=== PATIENT | male | born 1990 | race American Indian/Alaskan Native ===

== ENCOUNTER 2018-11-07 09:55 | Emergency (ER) | payer OTHER ==
[2018-11-07 10:17] VITALS: BP 135/87
--- NOTE | 2018-11-07 10:35 | Emergency Department Report ---
ED Back Pain/Injury HPI - General Chief Complaint: Back Pain/Injury Stated Complaint: BACK PAIN Time Seen by Provider: 11/07/18 10:24 Source: patient Limitations: No Limitations - History of Present Illness Initial Comments: This is a 28-year-old male who presents complaining of lower back sustained while he was at work on 10/29/2018. Patient stated that he was heavy box and t wisted the wrong way consistent cause a lower back pain since the incident. Patient states he was seen [facility] ER 3 days ago and was x-rayed to go home on 600 milligrams of ibuprofen and tramadol 50 mg. Patient states he still experiencing pain and does not have a follow-up appointment with the orthopedic doctor onto November 17. Patient states the pain is worsened by certain movements or sitting positions. He denies difficulty walking or bending or loss of sensation or loss of bowel function MD Complaint: back injury - Related Data Previous Rx's Medication Instructions Recorded Last Taken Type Cyclobenzaprine [Flexeril] 10 mg PO QHS PRN #15 tablet 11/07/18 Unknown Rx Allergies Allergy/AdvReac Type Severity Reaction Status Date / Time No Known Allergies Allergy Unverified 11/07/18 10:17 ED Review of Systems ROS: Stated complaint: BACK PAIN Other details as noted in HPI Comment: All other systems reviewed and negative ED Past Medical Hx - Past Medical History Previous Medical History?: No - Surgical History Past Surgical History?: No - Social History Smoking Status: Never Smoker Substance Use Type: None - Medications Home Medications: Home Medications Medication Instructions Recorded Confirmed Last Taken Type Cyclobenzaprine [Flexeril] 10 mg PO QHS PRN #15 tablet 11/07/18 Unknown Rx ED Physical Exam - General Limitations: No Limitations General appearance: alert, in no apparent distress - Head Head exam: Present: atraumatic, normocephalic - Eye Eye exam: Present: normal appearance - ENT ENT exam: Present: mucous membranes moist - Neck Neck exam: Present: normal inspection - Respiratory Respiratory exam: Present: normal lung sounds bilaterally. Absent: respiratory distress - Cardiovascular Cardiovascular Exam: Present: regular rate, normal rhythm. Absent: systolic murmur, diastolic murmur, rubs, gallop - GI/Abdominal GI/Abdominal exam: Present: soft, normal bowel sounds - Rectal Rectal exam: Present: deferred - Extremities Exam Extremities exam: Present: normal inspection - Back Exam Back exam: Present: normal inspection, full ROM, tenderness (to palpation of the lumbar spine and the latissimus dorsi muscles). Absent: CVA tenderness (R), CVA tenderness (L) - Neurological Exam Neurological exam: Present: alert, oriented X3 - Psychiatric Psychiatric exam: Present: normal affect, normal mood - Skin Skin exam: Present: warm, dry, intact, normal color. Absent: rash ED Course Vital Signs 11/07/18 10:16 Temperature 99 F Pulse Rate 103 H Respiratory 16 Rate Blood Pressure 135/87 O2 Sat by Pulse 99 Oximetry ED Medical Decision Making - Radiology Data Radiology results: report reviewed, image reviewed FINDINGS: CT images of the lumbar spine were obtained. Images are evaluated in the axial, coronal, and sagittal plane. There is no evidence of acute abnormality. Vertebral body height and alignment is normal throughout the lumbar spine. There is a slight wedge shape configuration to the T12 vertebral body and sagittal plane. Do not see any evidence to suggest acute abnormality at this level. Disc profiles are well-preserved at all levels. IMPRESSION: No evidence of acute abnormality. All CT scans at this location are performed using dose reduction to ALARA by means of automated exposure control. Signer Name: Scott Cast MD Signed: 11/07/2018 12:14 PM Workstation Name: [id number] Transcribed By: MIRIAN Dictated By: Scott Cast MD Electronically Authenticated By: Scott Cast MD Signed Date/Time: 11/07/18 1214 - Medical Decision Making 28-year-old male presents to ED with lower back myalgia ED course: Patient received CT scan of the lumbar spine Vital signs are normal patient is in no acute distress Discussed with patient follow-up with primary care physician. Discussed the patient and take medications as prescribed. Patient has no neurological deficit. Patient is alert and oriented 3 and understands all instructions given. Discussed drowsiness effect of Flexeril makes her drowsy and not to operate machinery while taking flexeril Critical care attestation.: If time is entered above; I have spent that time in minutes in the direct care of this critically ill patient, excluding procedure time. ED Disposition Clinical Impression: Low back pain, Lumbar strain Disposition: DC- TO HOME OR SELFCARE Is pt being admited?: No Does the pt Need Aspirin: No Condition: Stable Instructions: Lumbar Radiculopathy (ED), Arthralgia (ED) Additional Instructions: Make sure to follow up with the primary care physician as discussed. Keep your appointment with the orthopedic doctor has you have a scheduled Take all your medications as you've been prescribed. If you have any worsening symptoms or develop new symptoms please return to ED immediately. Prescriptions: Cyclobenzaprine [Flexeril] 10 mg PO QHS PRN #15 tablet PRN Reason: Muscle Spasm Referrals: GEE ESCOBAR MD [Staff Physician] - 3-5 Days Forms: Work/School Release Form(ED) Time of Disposition: 12:30
--- NOTE | 2018-11-07 12:18 | Cat Scan Report ---
CT LUMBAR SPINE: 11/07/2018 INDICATION / CLINICAL INFORMATION: MAIN: lower back pain/injury. COMPARISON: None available. FINDINGS: CT images of the lumbar spine were obtained. Images are evaluated in the axial, coronal, and sagitta l plane. There is no evidence of acute abnormality. Vertebral body height and alignment is normal throughout the lumbar spine. There is a slight wedge shape configuration to the T12 vertebral body and sagittal plane. Do not see any evidence to suggest acute abnormality at this level. Disc profiles are well-preserved at all levels. IMPRESSION: No evidence of acute abnormality. All CT scans at this location are performed using dose reduction to ALARA by means of automated expos ure control. Signer Name: Scott Cast MD Signed: 11/07/2018 12:14 PM Workstation Name: [id number]
== END 2018-11-07 12:41 | disposition home or self-care (01) ==
LOC: ED 09:55
DX: S39.012A Strain of muscle, fascia and tendon of lower back, initial encounter (principal); Z79.899 Other long term (current) drug therapy; X50.0XXA Overexertion from strenuous movement or load, initial encounter; Y93.89 Activity, other specified; Y92.89 Other specified places as the place of occurrence of the external cause; Y99.8 Other external cause status
CPT/HCPCS: 72131

== ENCOUNTER 2020-02-10 08:14 | Emergency (ER) | payer SELFPAY ==
[2020-02-10 08:34] VITALS: BP 148/89
[2020-02-10 09:02] LABS: Bilirubin,Urine NEG (Negative); Blood,Urine NEG (Negative); Color,Urine Yellow (Yellow); Mucus,Urine FEW /HPF; Protein,Urine <15 mg/dL mg/dL (Negative); Urobilinogen,Urine < 2.0 mg/dL (<2.0); WBC,Urine < 1.0 /HPF (0.0-6.0)
--- NOTE | 2020-02-10 10:30 | Emergency Department Report ---
ED Male HPI - General Chief complaint: Urogenital-Male Stated complaint: UTI Time Seen by Provider: 02/10/20 10:18 Source: patient Mode of arrival: Ambulatory Limitations: No Limitations - History of Present Illness Initial comments: The patient was evaluated in the emergency department for symptoms described in the history of present illness. He/she was evaluated in the context of the global COVID-19 pandemic, which necessitated consideration that the patient might be at risk for infection with the virus that causes COVID-19. Institutional protocols and algorithms that pertain to the evaluation of patients at risk for COVID-19 are in a state of rapid change based on information released by regulatory bodies including the CDC and federal and state organizations. These policies and algorithms were followed during the patient's care in the emergency department. Please note that these policies, procedures and recommendations changed on a rapid basis. 29-year-old -[place] male presents to the emergency room stating that he had mucus coming from his penis with urine. Patient denies any dysuria , penile discharge no lesions on his penis. Reports he had a STD check this week and gonorrhea and Chlamydia were both negative. Patient states that the concern is about a 2 out of 10. He denies any pain at this time. No nausea no vomiting. No bifurcation of stream of urine. No testicular pain or swelling no groin pain. Severity scale (0 -10): 2 Improves with: none Worsens with: none denies: discharge, swelling, mass - Related Data Previous Rx's Medication Instructions Recorded Last Taken Type Cyclobenzaprine [Flexeril] 10 mg PO QHS PRN #15 tablet 11/07/18 Unknown Rx Allergies Allergy/AdvReac Type Severity Reaction Status Date / Time No Known Allergies Allergy Unverified 11/07/18 10:17 ED Review of Systems ROS: Stated complaint: UTI Other details as noted in HPI Comment: All other systems reviewed and negative ED Past Medical Hx - Past Medical History Previous Medical History?: No - Surgical History Past Surgical History?: No - Social History Smoking Status: Never Smoker Substance Use Type: None - Medications Home Medications: Home Medications Medication Instructions Recorded Confirmed Last Taken Type Cyclobenzaprine [Flexeril] 10 mg PO QHS PRN #15 tablet 11/07/18 Unknown Rx ED Physical Exam - General Limitations: No Limitations General appearance: alert, in no apparent distress - Head Head exam: Present: atraumatic, normocephalic - Eye Eye exam: Present: normal appearance, PERRL, EOMI - ENT ENT exam: Present: mucous membranes moist - Respiratory Respiratory exam: Absent: accessory muscle use - Cardiovascular Cardiovascular Exam: Present: regular rate, normal rhythm. Absent: systolic murmur, diastolic murmur, rubs, gallop - Neurological Exam Neurological exam: Present: alert, oriented X3, normal gait - Psychiatric Psychiatric exam: Present: normal affect, normal mood - Skin Skin exam: Present: warm, dry, intact, normal color. Absent: rash ED Course Vital Signs 02/10/20 08:31 Temperature 99.1 F Pulse Rate 98 H Respiratory 20 Rate Blood Pressure 148/89 O2 Sat by Pulse 98 Oximetry ED Medical Decision Making - Medical Decision Making 29-year-old -[place] male presents to the emergency room stating that he had mucus coming from his penis with urine. Patient denies any dysuria , penile discharge no lesions on his penis. Reports he had a STD check this week and gonorrhea and Chlamydia were both negative. Patient states that the concern is about a 2 out of 10. He denies any pain at this time. No nausea no vomiting. No bifurcation of stream of urine. No testicular pain or swelling no groin pain. Urinalysis is negative for any abnormalities. I discussed the patient needs to increase his water intake avoid sugary drinks. Follow-up with a urologist or primary care provider for any further concerns. Critical care attestation.: If time is entered above; I have spent that time in minutes in the direct care of this critically ill patient, excluding procedure time. ED Disposition Clinical Impression: Dysuria Disposition: DC-01 TO HOME OR SELFCARE Is pt being admited?: No Does the pt Need Aspirin: No Condition: Stable Instructions: Dysuria Additional Instructions: Urinalysis is negative for any infection. Increase your water intake avoid sugary drinks avoid sodas and juices. Follow-up with a urologist. Referrals: PRIMARY CAREMD [Primary Care Provider] - 3-5 Days FUNMILAYO MELENDREZ MD [Staff Physician] - 3-5 Days
== END 2020-02-10 10:46 | disposition home or self-care (01) ==
LOC: ED 08:14
DX: R30.0 Dysuria (principal)
CPT/HCPCS: 81001; 99283

== ENCOUNTER 2020-04-01 01:33 | Emergency (ER) | payer SELFPAY ==
[2020-04-01 01:55] VITALS: BP 149/93
[2020-04-01 02:17] LABS: Bilirubin,Urine NEG (Negative); Blood,Urine NEG (Negative); Color,Urine Yellow (Yellow); Mucus,Urine FEW /HPF; Protein,Urine <15 mg/dL mg/dL (Negative); Urobilinogen,Urine < 2.0 mg/dL (<2.0)
[2020-04-01] MEDS ORDERED: ONDANSETRON 4 MG/2 ML INJ IV ONE (02:48)
[2020-04-01] MEDS ORDERED: FAMOTIDINE 20 MG/2 ML INJ IV ONE (02:48)
[2020-04-01] MEDS ORDERED: KETOROLAC 30 MG/1 ML INJ IV ONE (02:48)
[2020-04-01 03:02] LABS: Basophils % (Auto) 0.7 % (0.0-1.8); Eosinophils # (Auto) 0.1 K/mm3 (0.0-0.4); Eosinophils % (Auto) 0.9 % (0.0-4.3); Lymphocytes # (Auto) 3.1 K/mm3 (1.2-5.4); Lymphocytes % (Auto) 43.6 % (13.4-35.0); Mean Corpuscular HGB Conc 37 % (32-34); Mean Corpuscular Volume 88 fl (84-94); Monocytes # (Auto) 0.7 K/mm3 (0.0-0.8); Platelet Count 368 K/mm3 (140-440); Red Blood Count 4.78 M/mm3 (3.65-5.03); Red Cell Distribution Width 12.7 % (13.2-15.2)
[2020-04-01 03:04] LABS: Hematocrit 41.8 % (35.5-45.6); Hemoglobin 15.4 gm/dl (11.8-15.2)
[2020-04-01 03:07] LABS: Calcium 8.6 mg/dL (8.4-10.2); Hemolysis Index 5
--- NOTE | 2020-04-01 03:16 | Cat Scan Report ---
CT abdomen pelvis wo con INDICATION: left flank pain. COMPARISON: None TECHNIQUE: Abdominal and pelvic CT exam performed. All CT scans at this location are performed using CT dose reduction for ALARA by means of automated exposure control. FINDINGS: CT ABDOMEN and PELVIS: Lung Bases: Scattered pneumatoceles are seen within the visualized lungs. Liver: No significant abnormality. Biliary: No significant abnormality. Spleen: No significant abnormality. Pancreas: No significant abnormality. Adrenals: No significant abnormality. Kidneys: No significant abnormality. Lymphatics: No lymphadenopathy. Vasculature: No significant abnormality. Bowel: No significant abnormality. Normal appendix. Pelvis: No significant abnormality. Osseous Structures: No aggressive osseous lesion. Additional Findings: Tiny superior ventral and umbilical fat-containing abdominal wall hernias withou t complicating features IMPRESSION: 1. No significant abnormality of the abdomen or pelvis. Signer Name: Theo Braun MD Signed: 04/01/2020 3:11 AM Workstation Name: [id number]
[2020-04-01 03:33] LABS: BUN/Creatinine Ratio 1; Blood Urea Nitrogen 1 mg/dL (9-20)
--- NOTE | 2020-04-01 03:58 | Emergency Department Report ---
ED Abdominal Pain HPI - General Chief Complaint: Abdominal Pain Stated Complaint: LEFT FLANK PAIN Source: patient Mode of arrival: Ambulatory Limitations: No Limitations - History of Present Illness Initial Comments: Patient is a 29-year-old -[place] male with a history of morbid obesity and asthma who presents to the ED with complaint of persistent left flank pain intermittently for the last 6 months, worse in the last 1 week. Patient states that he was initially evaluated by an urgent care clinic and was advised to come to the ED immediately for evaluation to rule out AAA. Patient however denies dizziness, syncope, nausea, vomiting, hematuria, hematochezia, dysuria, urinary frequency and urgency, chest pain or shortness of breath, headache, traumatic injury or heavy lifting, fever and chills or cough and testicular pain. MD Complaint: abdominal pain, flank pain (left flank pain) -: Gradual, month(s) (6) Location: L flank Radiation: none Migration to: no migration Severity: moderate Severity scale (0 -10): 4 Quality: aching, sharp Consistency: intermittent Improves With: nothing Worsens With: movement Associated Symptoms: denies other symptoms, anorexia. denies: nausea, vomiting, diarrhea, fever, chills, constipation, dysuria, hematemesis, hematochezia, melena - Related Data Previous Rx's Medication Instructions Recorded Last Taken Type Cyclobenzaprine [Flexeril] 10 mg PO QHS PRN #15 tablet 11/07/18 Unknown Rx Cyclobenzaprine [Flexeril] 10 mg PO TID PRN #15 tablet 04/01/20 Unknown Rx Naproxen 500 mg PO Q12H PRN #30 tablet 04/01/20 Unknown Rx Allergies Allergy/AdvReac Type Severity Reaction Status Date / Time No Known Allergies Allergy Unverified 11/07/18 10:17 ED Review of Systems ROS: Stated complaint: LEFT FLANK PAIN Other details as noted in HPI Constitutional: denies: chills, fever Eyes: denies: eye pain, eye discharge, vision change ENT: denies: ear pain, throat pain Respiratory: denies: cough, shortness of breath, wheezing Cardiovascular: denies: chest pain, palpitations Endocrine: no symptoms reported Gastrointestinal: abdominal pain (left flank pain). denies: nausea, vomiting, diarrhea Genitourinary: denies: urgency, dysuria Musculoskeletal: denies: back pain, joint swelling, arthralgia Skin: denies: rash, lesions Neurological: denies: headache, weakness, paresthesias Psychiatric: denies: anxiety, depression Hematological/Lymphatic: denies: easy bleeding, easy bruising ED Past Medical Hx - Past Medical History Previous Medical History?: Yes Hx Asthma: Yes - Surgical History Past Surgical History?: No - Social History Smoking Status: Never Smoker Substance Use Type: Alcohol - Medications Home Medications: Home Medications Medication Instructions Recorded Confirmed Last Taken Type Cyclobenzaprine [Flexeril] 10 mg PO QHS PRN #15 tablet 11/07/18 Unknown Rx Cyclobenzaprine [Flexeril] 10 mg PO TID PRN #15 tablet 04/01/20 Unknown Rx Naproxen 500 mg PO Q12H PRN #30 tablet 04/01/20 Unknown Rx ED Physical Exam - General Limitations: No Limitations General appearance: alert, in no apparent distress - Head Head exam: Present: atraumatic, normocephalic, normal inspection - Eye Eye exam: Present: normal appearance, PERRL, EOMI Pupils: Present: normal accommodation - ENT ENT exam: Present: normal exam, normal orophraynx, mucous membranes moist, TM's normal bilaterally, normal external ear exam - Neck Neck exam: Present: normal inspection, full ROM - Respiratory Respiratory exam: Present: normal lung sounds bilaterally. Absent: respiratory distress, wheezes, rales, stridor, chest wall tenderness, accessory muscle use, decreased breath sounds - Cardiovascular Cardiovascular Exam: Present: regular rate, normal rhythm, normal heart sounds. Absent: systolic murmur, diastolic murmur, rubs, gallop - GI/Abdominal GI/Abdominal exam: Present: soft, tenderness (Palpable mild left flank tenderness), normal bowel sounds. Absent: guarding, rebound, hyperactive bowel sounds, hypoactive bowel sounds, mass - Extremities Exam Extremities exam: Present: normal inspection, full ROM, normal capillary refill - Back Exam Back exam: Present: normal inspection, full ROM, tenderness (Palpable left lumbosacral paraspinal musculoskeletal tenderness), muscle spasm, paraspinal tenderness. Absent: CVA tenderness (R), CVA tenderness (L), vertebral tenderness - Neurological Exam Neurological exam: Present: alert, oriented X3, CN II-XII intact, normal gait, reflexes normal - Psychiatric Psychiatric exam: Present: normal affect, normal mood - Skin Skin exam: Present: warm, dry, intact, normal color. Absent: rash ED Course Vital Signs 04/01/20 04/01/20 01:50 03:12 Temperature 98.1 F Pulse Rate 92 H Respiratory 18 18 Rate Blood Pressure 149/93 O2 Sat by Pulse 97 Oximetry ED Medical Decision Making - Lab Data Result diagrams: 04/01/20 02:35 04/01/20 02:35 - Radiology Data Radiology results: report reviewed, image reviewed Findings [facility] [address] [place] [address] Cat Scan Report Signed Patient: ROSY DAVIS MR#: [id number] : 1990 Acct:[id number] Age/Sex: 29 / M ADM Date: 04/01/20 Loc: ED Attending Dr: Ordering Physician: ONELIA GAMING Date of Service: 04/01/20 Procedure(s): CT abdomen pelvis wo con Accession Number(s): [id number] cc: ONELIA GAMING CT abdomen pelvis wo con INDICATION: left flank pain. COMPARISON: None TECHNIQUE: Abdominal and pelvic CT exam performed. All CT scans at this location are performed using CT dose reduction for ALARA by means of automated exposure control. FINDINGS: CT ABDOMEN and PELVIS: Lung Bases: Scattered pneumatoceles are seen within the visualized lungs. Liver: No significant abnormality. Biliary: No significant abnormality. Spleen: No significant abnormality. Pancreas: No significant abnormality. Adrenals: No significant abnormality. Kidneys: No significant abnormality. Lymphatics: No lymphadenopathy. Vasculature: No significant abnormality. Bowel: No significant abnormality. Normal appendix. Pelvis: No significant abnormality. Osseous Structures: No aggressive osseous lesion. Additional Findings: Tiny superior ventral and umbilical fat-containing abdominal wall hernias without complicating features IMPRESSION: 1. No significant abnormality of the abdomen or pelvis. Signer Name: Theo Braun MD Signed: 04/01/2020 3:11 AM Workstation Name: [id number] Transcribed By: GERHARD Dictated By: Theo Braun MD Electronically Authenticated By: Theo Braun MD Signed Date/Time: 04/01/20310 DD/ 030 TD/TT: - Medical Decision Making This is a 29-year-old -[place] male with a history of morbid obesity and asthma who presents to the ED with complaint of persistent left flank pain intermittently for the last 6 months, worse in the last 1 week. Patient states that he was initially evaluated by an urgent care clinic and was advised to come to the ED immediately for evaluation to rule out AAA. In the ED, patient is alert and oriented x3 and is not in any distress. Patient was treated in the ED for pain and was given normal saline 1 L IV bolus x1. Abdomen pelvis CT scan without contrast showed no acute abnormalities or kidney stones. Lab test results were reviewed and are all nonactionable. On reevaluation, patient's pain is well controlled medications. Patient is hemodynamically stable in the ED and was discharged home on pain medications and muscle relaxants as the pain is likely due to muscle strain or muscle spasm of mid posterior thoracic area. Patient was advised to follow-up with his primary care physician in 7 to 10 days for reevaluation or return to the ED immediately if symptoms get worse. - Differential Diagnosis Kidney stones; UTI; colitis; muscle spasm; diverticulitis Critical care attestation.: If time is entered above; I have spent that time in minutes in the direct care of this critically ill patient, excluding procedure time. ED Disposition Clinical Impression: Chronic left flank pain, Spasm of thoracic back muscle Disposition: TO HOME OR SELFCARE Is pt being admited?: No Does the pt Need Aspirin: No Condition: Stable Instructions: Muscle Cramps and Spasms, [id number], Flank Pain, Adult, E asy-to-Read Additional Instructions: All lab test results were reviewed and are all nonactionable. The abdomen pelvis CT scan without contrast showed no acute abnormalities. Your symptoms are likely due to muscle spasm or muscle strain of your back. Therefore take medications with food, drink plenty of fluids and follow-up with your primary care physician in 5 to 7 days for reevaluation. Return to the ED immediately if symptoms get worse. Prescriptions: Cyclobenzaprine [Flexeril] 10 mg PO TID PRN #15 tablet PRN Reason: Muscle Spasm Naproxen 500 mg PO Q12H PRN #30 tablet PRN Reason: Pain , Severe (7-10) Referrals: [facility] [Provider Group] - 3-5 Days Time of Disposition: 03:56 Print Language: GERMAN
[2020-04-01 04:27] LABS: Alanine Aminotransferase 25 units/L (7-56); Albumin 3.7 g/dL (3.9-5)
[2020-04-01 04:28] LABS: Bilirubin,Direct < 0.2 mg/dL (0-0.2)
== END 2020-04-01 04:26 | disposition home or self-care (01) ==
LOC: ED 01:33
DX: M62.830 Muscle spasm of back (principal); R10.9 Unspecified abdominal pain; J45.909 Unspecified asthma, uncomplicated; E66.01 Morbid (severe) obesity due to excess calories; Z68.41 Body mass index [BMI] 40.0-44.9, adult; Z79.899 Other long term (current) drug therapy
CPT/HCPCS: 36415; 74176; 80048; 80076; 81001; 85025; 96374; 96375; 99284; J1885; J2405

== ENCOUNTER 2020-06-12 13:06 | Emergency (ER) | payer SELFPAY ==
[2020-06-12 13:55] VITALS: BP 148/86
--- NOTE | 2020-06-12 14:07 | Emergency Department Report ---
Chief Complaint: Upper Respiratory Infection Stated Complaint: COUGHING, COLD SYMPTOMS Time Seen by Provider: 06/12/20 13:54 - HPI History of Present Illness: Patient is a 29-year-old male presents emergency room complaints of cold-like symptoms that began 5 days ago. He states initially it started as a sore throat but that completely resolved. He states now he has a dry cough. He denies any fever, vomiting, diarrhea, shortness of breath, ear pain. He denies any sick contacts or recent travel. He states that he did go out with a bunch of people and then began feeling sick a couple of days later. He has a past medical history of childhood asthma. No allergies to medications. He is a non-smoker. Initial triage vitals with tachycardia On repeat in exam room patient's heart rate is 98 bpm On exam Non toxic appearing, no acute distress atraumatic, normocephalic normal appearance of the eyes, PERRL, EOMI, no periorbital edema or ecchymosis moist mucus membranes regular heart rate and rhythm, no gallops, no rubs, no murmurs breath sounds are clear bilaterally, no w/r/r, no respiratory distress, no accessory muscle use, no stridor A&O x4, no focal neuro deficit skin is warm, dry, intact Patient is presenting with viral-like symptoms He has no clinical signs of bacterial pneumonia or bacterial bronchitis No clinical signs of dehydration Discussed supportive care and symptomatic treatment with patient Discussed strict return precautions Patient is presenting with the symptoms during COVID-19 pandemic, discussed COVID-19 with patient, discussed strict return precautions, discussed outpatient testing, discussed self quarantine Patient will be referred to primary care doctor Medical screen examination performed and there is no threat to life or limb at this time - Exam Vital Signs: Vital Signs 06/12/20 06/12/20 13:16 14:04 Temperature 99.3 F Pulse Rate 116 H 98 H Respiratory 16 Rate Blood Pressure 148/86 O2 Sat by Pulse 97 98 Oximetry MSE screening note: Focused history and physical exam performed. Due to findings the following was ordered: ED Disposition for MSE Clinical Impression: Viral URI with cough Disposition: Z MED SCREENING EXAM-LEFT Is pt being admited?: No Does the pt Need Aspirin: No Condition: Stable Instructions: Viral Respiratory Infection, COVID-19: How to Protect Yourself and Others - CDC Additional Instructions: Please increase your fluid intake over the next several days. May take Tylenol as needed for fever or body aches. May take [id number]-[id number] cold symptom relief medication such as Mucinex or TheraFlu. Follow-up with a primary care doctor for reexamination. Return to emergency room immediately for any new or worsening symptoms including but not limited to difficulty breathing, shortness of breath, severe chest pain, unable to tolerate by mouth intake, etc. Please self quarantine for 10 days from the onset of your symptoms. Please do not go out in public. If you are around others at home please wear a mask. If you need to cough or sneeze please do so in a napkin and immediately throw it away and immediately wash your hands. Wash your hands frequently. Wipe everything down. Referrals: LAUREN JANE MD [Staff Physician] - 2-3 Days [facility] [Provider Group] - 2-3 Days Time of Disposition: 14:07 Print Language: [id number]
== END 2020-06-12 14:20 | disposition left against medical advice (07) ==
LOC: ED 13:06
DX: R05 Cough (principal); Z53.21 Procedure and treatment not carried out due to patient leaving prior to being seen by health care provider